=== PATIENT | male | born 1950 | race Caucasian/White ===

== ENCOUNTER 2018-07-06 14:16 | Emergency (ER) | payer MEDICARE, OTHER ==
[2018-07-06 14:53] VITALS: BP 141/87; PULSE 74; RESP 18; TEMP 98.1
--- NOTE | 2018-07-06 15:44 | XR ---
EXAMINATION TYPE: XR knee complete RT DATE OF EXAM: 07/06/2018 CLINICAL HISTORY: Right knee pain for 4 days with no recent known injury. Prior injury 20 years ago. TECHNIQUE: Three views of the right knee are obtained. COMPARISON: None. FINDINGS: There is no acute fracture/dislocation evident in right knee. Heterotopic ossification is seen along the lateral femoral condyle likely from prior trauma as this is well corticated. Medial an d lateral compartment chondrocalcinosis is seen. Superior and inferior patellar osteophytes are prese nt as well as joint space narrowing of the patellofemoral joint.. IMPRESSION: There is no acute fracture or dislocation in the right knee. Sequela prior injury of the lateral distal femur, chondrocalcinosis that can be seen in CPPD or other arthropathies, and patello femoral arthropathy.
--- NOTE | 2018-07-06 16:21 | US ---
EXAMINATION TYPE: US venous doppler duplex LE RT DATE OF EXAM: 07/06/2018 4:07 PM COMPARISON: US CLINICAL HISTORY: Pain. Right knee swelling and pain radiating down calf x 3 days SIDE PERFORMED: Right TECHNIQUE: The lower extremity deep venous system is examined utilizing real time linear array sonog bassem with graded compression, doppler sonography and color-flow sonography. VESSELS IMAGED: Common Femoral Vein Deep Femoral Vein Greater Saphenous Vein * Femoral Vein Popliteal Vein Small Saphenous Vein * Proximal Calf Veins (* superficial vessels) Right Leg: Negative for DVT. Complex fluid area is noted anterior right knee superiorly and size = 4 .8 x 4.1 x 1.1cm. This is avascular. IMPRESSION: 1. No evidence of deep venous thrombosis within the right lower extremity. 2. In the region of the patient's pain anterior to the right knee there is a 4.8 cm complex avascular fluid collection most sonographically compatible with an evolving hematoma. However if there is no c linical improvement short-term follow-up ultrasound would be recommended to evaluate for persistence or interval growth.
--- NOTE | 2018-07-06 16:52 | ED ---
General Adult HPI - General Chief complaint: Extremity Injury, Lower Stated complaint: Rt leg pain Time Seen by Provider: 07/06/18 15:07 Source: patient, RN notes reviewed Mode of arrival: ambulatory Limitations: no limitations - History of Present Illness Initial comments: 68-year-old male presented to the emergency room today with chief complaint of right-sided knee pain and Pain. He doesn't that he seen some swelling. He denies any specific injury or trauma. States it is tender with ambulation. Patient denies any other complaints or symptoms. Patient denies any recent fever , chills, shortness of breath, chest pain, back pain, abdominal pain, nausea or vomiting, numbness or tingling, headaches or visual changes, or any other complaints. - Related Data Home Medications Medication Instructions Recorded Confirmed Aspirin EC [Ecotrin] 81 mg PO DAILY 01/23/15 01/23/15 Allergies Allergy/AdvReac Type Severity Reaction Status Date / Time No Known Allergies Allergy Verified 01/23/15 01:25 Review of Systems ROS Statement: Those systems with pertinent positive or pertinent negative responses have been documented in the HPI. ROS Other: All systems not noted in ROS Statement are negative. Past Medical History Past Medical History: CVA/TIA History of Any Multi-Drug Resistant Organisms: None Reported Past Surgical History: Orthopedic Surgery Additional Past Surgical History / Comment(s): Additional Surgical Hx: Splenectomy Past Psychological History: No Psychological Hx Reported Smoking Status: Former smoker Past Alcohol Use History: Occasional Past Drug Use History: None Reported General Exam - General Exam Comments Initial Comments: General: The patient is awake and alert, in no distress, and does not appear acutely ill. Neck: The neck is supple, there is no tenderness or JVD. Cardiovascular: There is a regular rate and rhythm. No murmur, rub or gallop is appreciated. Respiratory: Lungs are clear to auscultation, respirations are non-labored, breath sounds are equal. No wheezes, stridor, rales, or rhonchi. Musculoskeletal: Patient does have moderate swelling to the right knee and calf. Mild tenderness to the medial and lateral aspect of the right knee. Sensations are intact. Pedal pulses plus. Patient shows full range motion. Strength 5/5. Neurological: A&O x 3. CN II-XII intact, There are no obvious motor or sensory deficits. Coordination appears grossly intact. Speech is normal. Skin: Skin is warm and dry and no rashes or lesions are noted. Psychiatric: Normal mood and affect. Limitations: no limitations Course Vital Signs 07/06/18 14:49 Temperature 98.1 F Pulse Rate 74 Respiratory 18 Rate Blood Pressure 141/87 O2 Sat by Pulse 97 Oximetry Medical Decision Making - Medical Decision Making Ultrasound negative for any evidence of a DVT. Moderate amount of swelling. Patient's x-ray shows arthritic changes no acute fracture dislocation. Results were discussed with the patient. Patient will be discharged to follow-up with orthopedics. Advised return for any other concerns. Disposition Clinical Impression: Knee effusion, right Disposition: HOME SELF-CARE Condition: Good Instructions: Knee Pain (ED) Additional Instructions: Please continue to ice elevate the affected area. Please follow-up with orthopedics over the next 2 days return here to the emergency room for any other concerns. Is patient prescribed a controlled substance at d/c from ED?: No Referrals: Good Reeves MD [Primary Care Provider] - 1-2 days Wade John MD [Medical Doctor] - 1-2 days Time of Disposition: 16:54
== END 2018-07-06 17:08 | disposition home or self-care (01) ==
LOC: EC 14:16
DX: M79.661 Pain in right lower leg (principal); M25.461 Effusion, right knee; Z87.891 Personal history of nicotine dependence; Z79.82 Long term (current) use of aspirin
CPT/HCPCS: 99284

== ENCOUNTER 2024-04-18 00:35 | Emergency (ER) | payer MEDICARE ==
[2024-04-18 00:41] VITALS: TEMP 98.4
--- NOTE | 2024-04-18 00:55 | ED ---
Extremity Problem HPI - General Chief complaint: Extremity Problem,Nontraumatic Stated complaint: Left foot swelling and pain Time Seen by Provider: 04/18/24 00:44 Source: patient, family Mode of arrival: wheelchair Limitations: no limitations - History of Present Illness Initial comments: This patient is a 73-year-old man who presents with complaint of left ankle pain and swelling. The patient first noticed the swelling approximately 2 weeks ago. He states that he did a fair amount of walking tonight and the swelling and pain increased. He denies any injury as the inciting factor. He has no previous history of DVT/PE. He denies any chest symptoms, no palpitations, chest pain, dyspnea, lightheadedness or syncope. Patient has not noted fever or chills. No rash associated. MD Complaint: extremity pain, extremity swelling Onset/Timin -: week(s) Location: left, lower extremity History of Same: No -: Yes arthralgia Radiation: none Quality: aching Consistency: constant Improves with: nothing Worsens with: walking Associated Symptoms: denies other symptoms - Related Data Home Medications Medication Instructions Recorded Confirmed Aspirin EC [Ecotrin] 81 mg PO DAILY 01/23/15 01/23/15 Previous Rx's Medication Instructions Recorded HYDROcodone/APAP 5-325MG [[place] 1 tab PO Q6HR PRN 3 Days #12 tab 04/18/24 5-325] predniSONE 60 mg PO DAILY #30 tab 04/18/24 Allergies Allergy/AdvReac Type Severity Reaction Status Date / Time No Known Allergies Allergy Verified 04/18/24 00:41 Review of Systems ROS Statement: Those systems with pertinent positive or pertinent negative responses have been documented in the HPI. ROS Other: All systems not noted in ROS Statement are negative. Constitutional: Denies: fever, chills Respiratory: Denies: cough, dyspnea Cardiovascular: Denies: chest pain, palpitations, edema, syncope Gastrointestinal: Denies: abdominal pain, vomiting, diarrhea Genitourinary: Denies: dysuria, hematuria Musculoskeletal: Reports: joint swelling, arthralgia. Denies: back pain Skin: Denies: rash Neurological: Denies: headache, weakness, numbness Past Medical History Past Medical History: CVA/TIA History of Any Multi-Drug Resistant Organisms: None Reported Past Surgical History: Orthopedic Surgery Additional Past Surgical History / Comment(s): Additional Surgical Hx: Splenectomy Past Psychological History: No Psychological Hx Reported Past Alcohol Use History: Occasional Past Drug Use History: None Reported General Exam Limitations: no limitations General appearance: alert, in no apparent distress Head exam: Present: atraumatic, normocephalic Eye exam: Present: normal appearance. Absent: scleral icterus, conjunctival inj ection Neck exam: Present: normal inspection Respiratory exam: Present: normal lung sounds bilaterally. Absent: respiratory distress, wheezes, rales, rhonchi, stridor, accessory muscle use Cardiovascular Exam: Present: regular rate, normal rhythm, normal heart sounds. Absent: systolic murmur, diastolic murmur, rubs, gallop GI/Abdominal exam: Present: soft. Absent: distended, tenderness, guarding, rebound, rigid, mass Extremities exam: Present: full ROM, tenderness, normal capillary refill, joint swelling. Absent: calf tenderness Neurological exam: Present: alert. Absent: motor sensory deficit Skin exam: Present: warm, dry, intact, normal color. Absent: rash Course Vital Signs 04/18/24 04/18/24 04/18/24 00:36 01:33 02:20 Temperature 98.4 F Pulse Rate 80 73 67 Respiratory 16 18 18 Rate Blood Pressure 217/100 204/101 205/93 O2 Sat by Pulse 97 96 98 Oximetry Medical Decision Making - Medical Decision Making Was pt. sent in by a medical professional or institution (SHELTON Locke, BUSINESS ADVISOR, urgent care, hospital, or alf...) When possible be specific @ -[No] Did you speak to anyone other than the patient for history (EMS, parent, family, police, friend...)? What history was obtained from this source @ -[No] Did you review nursing and triage notes (agree or disagree)? Why? @ -[I reviewed and agree with nursing and triage notes] Were old charts reviewed (outside hosp., previous admission, EMS record, old EKG, old radiological studies, urgent care reports/EKG's, alf records)? Report findings @ -[No old charts were reviewed] Differential Diagnosis (chest pain, altered mental status, abdominal pain women, abdominal pain men, vaginal bleeding, weakness, fever, dyspnea, syncope, headache, dizziness, GI bleed, back pain, seizure, CVA, palpatations, mental health, musculoskeletal)? @ -[Differential Musculoskeletal Muscular strain, contusion, ligament sprain, fracture, arthritis, septic arthritis, bursitis, cellulitis, muscle spasm, nerve compression, DVT, arterial occlusion, herpes zoster, electrolyte abnormality, tumor.... This is not meant to be in all inclusive list EKG interpreted by me (3pts min.). @ -[As above] X-rays interpreted by me (1pt min.). @ -[None done] CT interpreted by me (1pt min.). @ -[None done] U/S interpreted by me (1pt. min.). @ -[None done] What testing was considered but not performed or refused? (CT, X-rays, U/S, labs)? Why? @ -[None] What meds were considered but not given or refused? Why? @ -[None] Did you discuss the management of the patient with other professionals (professionals i.e. , PA, BUSINESS ADVISOR, lab, RT, psych nurse, social work associate, package sorter, teacher, court officer, casework specialist)? Give summary @ -[No] Was smoking cessation discussed for >3mins.? @ -[No] Was critical care preformed (if so, how long)? @ -[No] Were there social determinants of health that impacted care today? How? (Homelessness, low income, unemployed, alcoholism, drug addiction, transportation, low edu. Level, literacy, decrease access to med. care, senior living, rehab)? @ -[No] Was there de-escalation of care discussed even if they declined (Discuss DNR or withdrawal of care, Hospice)? DNR status @ -[No] What co-morbidities impacted this encounter? (DM, HTN, Smoking, COPD, CAD, Cancer, CVA, ARF, Chemo, Hep., AIDS, mental health diagnosis, sleep apnea, morbid obesity)? @ -[None] Was patient admitted / discharged? Hospital course, mention meds given and route, prescriptions, significant lab abnormalities, going to OR and other pe rtinent info. @ -[Patient is 73-year-old man who is here with ankle pain and swelling. The physical exam suggestive of gout. The patient will have course of medication and follow with his physician to ensure that there is improvement Undiagnosed new problem with uncertain prognosis? @ -[No] Drug Therapy requiring intensive monitoring for toxicity (Heparin, Nitro, Insulin, Cardizem)? @ -[No] Were any procedures done? @ -[No] Diagnosis/symptom? @ -[Acute arthralgia, suspected gout Acute, or Chronic, or Acute on Chronic? @ -[Acute Uncomplicated (without systemic symptoms) or Complicated (systemic symptoms)? @ -Uncomplicated Side effects of treatment? @ -[No] Exacerbation, Progression, or Severe Exacerbation? @ -[No] Poses a threat to life or bodily function? How? (Chest pain, [place], [place], pneumonia, PE, COPD, DKA, ARF, appy, cholecystitis, CVA, Diverticulitis, Homicidal, Suicidal, threat to staff... and all critical care pts) @ -[No] - Lab Data Result diagrams: 04/18/24 01:29 04/18/24 01:29 Lab Results 04/18/24 04/18/24 Range/Units 01:29 01:29 WBC 13.4 H (3.8-10.6) k/uL RBC 4.41 (4.30-5.90) m/uL Hgb 13.8 (13.0-17.5) gm/dL Hct 42.1 (39.0-53.0) % MCV 95.5 (80.0-100.0) fL MCH 31.3 (25.0-35.0) pg MCHC 32.7 (31.0-37.0) g/dL RDW 13.9 (11.5-15.5) % Plt Count 320 (150-450) k/uL MPV 9.6 Neutrophils % 77 % Lymphocytes % 13 % Monocytes % 7 % Eosinophils % 2 % Basophils % 0 % Neutrophils # 10.3 H (1.3-7.7) k/uL Lymphocytes # 1.7 (1.0-4.8) k/uL Monocytes # 1.0 (0-1.0) k/uL Eosinophils # 0.2 (0-0.7) k/uL Basophils # 0.1 (0-0.2) k/uL Hypochromasia Slight Sodium 139 (137-145) mmol/L Potassium 4.6 (3.5-5.1) mmol/L Chloride 110 H (98-107) mmol/L Carbon Dioxide 22 (22-30) mmol/L Anion Gap 7 mmol/L BUN 20 (9-20) mg/dL Creatinine 0.63 L (0.66-1.25) mg/dL Est GFR (CKD-EPI)AfAm >90 (>60 ml/min/1.73 sqM) Est GFR (CKD-EPI)NonAf >90 (>60 ml/min/1.73 sqM) Glucose 106 H (74-99) mg/dL Uric Acid 4.0 (3.5-8.5) mg/dL Calcium 9.7 (8.4-10.2) mg/dL Total Bilirubin 0.7 (0.2-1.3) mg/dL AST 22 (17-59) U/L ALT 11 (4-49) U/L Alkaline Phosphatase 103 (38-126) U/L C-Reactive Protein 2.5 H (<1.0) mg/dL Total Protein 7.6 (6.3-8.2) g/dL Albumin 4.4 (3.5-5.0) g/dL Disposition Clinical Impression: Arthralgia of ankle or foot, left Disposition: HOME SELF-CARE Condition: Good Instructions (If sedation given, give patient instructions): Low Purine Diet (ED), Gout (ED), Arthralgia (ED) Prescriptions: HYDROcodone/APAP 5-325MG [[place] 5-325] 1 tab PO Q6HR PRN 3 Days #12 tab PRN Reason: Pain predniSONE 60 mg PO DAILY #30 tab Is patient prescribed a controlled substance at d/c from ED?: Yes When asked, does pt state using other controlled substances?: No If prescribed controlled substance>3 days was MAPS reviewed?: Prescribed <3 Days If opioid is for acute pain is fill amount 7 days or less?: Yes If Rx opioid, was Start Talking consent form obtained?: Yes Referrals: Good Reeves MD [Primary Care Provider] - 1-2 days
[2024-04-18] MEDS: KETOROLAC 15 MG/ML 1 ML VIAL IVP STA (01:23)
[2024-04-18] MEDS: MORPHINE SULFATE 4 MG/ML SYRINGE IV STA (01:24)
[2024-04-18 01:35] VITALS: RESP 18
[2024-04-18 01:41] LABS: Basophils # (A) 0.1 k/uL (0-0.2); Basophils % (A) 0 %; Eosinophils # (A) 0.2 k/uL (0-0.7); Eosinophils % (A) 2 %; HCT 42.1 % (39.0-53.0); HGB 13.8 gm/dL (13.0-17.5); Hypochromasia Slight; Lymphocytes # (A) 1.7 k/uL (1.0-4.8); Lymphocytes % (A) 13 %; MCH 31.3 pg (25.0-35.0); MCHC 32.7 g/dL (31.0-37.0); MCV 95.5 fL (80.0-100.0); Mean Platelet Volume 9.6; Monocytes % (A) 7 %; Neutrophils # (A) 10.3 k/uL (1.3-7.7); Neutrophils % (A) 77 %; Platelet Count 320 k/uL (150-450); RBC 4.41 m/uL (4.30-5.90); RDW 13.9 % (11.5-15.5); WBC 13.4 k/uL (3.8-10.6)
--- NOTE | 2024-04-18 01:41 | US ---
EXAM: US Duplex Left Lower Extremity Veins CLINICAL HISTORY: ITS.REASON US Reason: pain, possible DVT TECHNIQUE: Real-time duplex ultrasound scan of the left lower extremity veins integrating B-mode two-dimensional vascular structure, Doppler spectral analysis, color flow Doppler imaging and compression. COMPARISON: No relevant prior studies available. FINDINGS: Deep veins: No DVT in the visualized common femoral, femoral, proximal deep femoral or popliteal veins. The veins demonstrate normal color flow, are normally compressible, with normal phasic flow and/or augmentation response. Superficial veins: No thrombus in the visualized great saphenous vein. Soft tissues: No popliteal cyst. IMPRESSION: No DVT.
[2024-04-18 01:50] LABS: ALT 11 U/L (4-49); AST 22 U/L (17-59); African American GFR (CKD) >90 (>60 ml/min/1.73 sqM); Albumin 4.4 g/dL (3.5-5.0); Alkaline Phosphatase 103 U/L (38-126); Anion Gap 7 mmol/L; Blood Urea Nitrogen 20 mg/dL (9-20); C Reactive Protein 2.5 mg/dL (<1.0); Calcium 9.7 mg/dL (8.4-10.2); Carbon Dioxide 22 mmol/L (22-30); Chloride 110 mmol/L (98-107); Glucose 106 mg/dL (74-99); Non-African American GFR(CKD) >90 (>60 ml/min/1.73 sqM); Sodium 139 mmol/L (137-145); Total Bilirubin 0.7 mg/dL (0.2-1.3); Total Protein 7.6 g/dL (6.3-8.2)
[2024-04-18 01:54] LABS: Potassium 4.6 mmol/L (3.5-5.1)
[2024-04-18 02:22] VITALS: BP 205/93; PULSE 67
[2024-04-18] MEDS: predniSONE 20 MG TAB PO STA (02:27)
== END 2024-04-18 02:41 | disposition home or self-care (01) ==
LOC: EC 00:35
DX: M25.572 Pain in left ankle and joints of left foot (principal); Z86.73 Personal history of transient ischemic attack (TIA), and cerebral infarction without residual deficits
CPT/HCPCS: 36415; 80053; 84550; 85025; 86140; 93971; 99284; 96374; 96375; J2270; J1885; J7512

== ENCOUNTER 2024-06-23 22:55 | Emergency (ER) | payer MEDICARE ==
[2024-06-23 23:16] VITALS: BP 153/84; PULSE 86; RESP 16; TEMP 98.2
[2024-06-23] MEDS ORDERED: predniSONE 50 MG TAB PO STA (23:23)
[2024-06-23] MEDS ORDERED: HYDROcodone/APAP 5-325MG 1 EACH TAB PO STA (23:23)
--- NOTE | 2024-06-23 23:25 | ED ---
General Adult HPI - General Chief complaint: Extremity Injury, Lower Stated complaint: Rt Foot Pain Time Seen by Provider: 06/23/24 23:01 Source: patient, RN notes reviewed, old records reviewed Mode of arrival: wheelchair Limitations: no limitations - History of Present Illness Initial comments: 73-year-old male with recent diagnosis of gout presents with right ankle pain. Pain has been present for the past several days. No associated fever. Patient has been trying [id number] medications without relief. He states that several months ago he had a gout attack in the left ankle and was prescribed steroids and pain medication. This did significantly improve his symptoms. Patient denies fever. Denies calf pain or tenderness. Denies dyspnea. - Related Data Home Medications Medication Instructions Recorded Confirmed Aspirin EC [Ecotrin] 81 mg PO DAILY 01/23/15 01/23/15 Previous Rx's Medication Instructions Recorded HYDROcodone/APAP 5-325MG [[place] 1 tab PO Q6HR PRN 3 Days #12 tab 04/18/24 5-325] predniSONE 60 mg PO DAILY #30 tab 04/18/24 HYDROcodone/APAP 5-325MG [[place] 1 tab PO Q6HR PRN #12 tab 06/23/24 5-325] predniSONE 50 mg PO DAILY #5 tab 06/23/24 Allergies Allergy/AdvReac Type Severity Reaction Status Date / Time No Known Allergies Allergy Verified 04/18/24 00:41 Review of Systems ROS Statement: Those systems with pertinent positive or pertinent negative responses have been documented in the HPI. ROS Other: All systems not noted in ROS Statement are negative. Past Medical History Past Medical History: CVA/TIA, Hyperlipidemia, Hypertension Additional Past Medical History / Comment(s): gout History of Any Multi-Drug Resistant Organisms: None Reported Past Surgical History: Orthopedic Surgery Additional Past Surgical History / Comment(s): Additional Surgical Hx: Splenectomy Past Psychological History: No Psychological Hx Reported Past Alcohol Use History: Occasional Past Drug Use History: None Reported General Exam Limitations: no limitations General appearance: alert, in no apparent distress Head exam: Present: atraumatic, normocephalic Eye exam: Present: normal appearance, PERRL ENT exam: Present: normal exam Neck exam: Present: normal inspection. Absent: tenderness, meningismus Respiratory exam: Present: normal lung sounds bilaterally. Absent: respiratory distress, wheezes Cardiovascular Exam: Present: regular rate, normal rhythm GI/Abdominal exam: Present: soft. Absent: tenderness Extremities exam: Present: joint swelling (Mild right ankle swelling with warmth.), other (Distal pulses intact). Absent: calf tenderness Course Vital Signs 06/23/24 23:12 Temperature 98.2 F Pulse Rate 86 Respiratory 16 Rate Blood Pressure 153/84 O2 Sat by Pulse 98 Oximetry Medical Decision Making - Medical Decision Making Was pt. sent in by a medical professional or institution (SHELTON Locke, BOMB LOADER, urgent care, hospital, or [facility]...) When possible be specific @ -No Did you speak to anyone other than the patient for history (EMS, parent, family, police, friend...)? What history was obtained from this source @ -No Did you review nursing and triage notes (agree or disagree)? Why? @ -I reviewed and agree with nursing and triage notes Were old charts reviewed (outside hosp., previous admission, EMS record, old EKG, old radiological studies, urgent care reports/EKG's, [facility] records)? Report findings @ -No old charts were reviewed Differential Musculoskeletal Muscular strain, contusion, ligament sprain, fracture, arthritis, septic arthritis, bursitis, cellulitis, muscle spasm, nerve compression, DVT, arterial occlusion, herpes zoster, electrolyte abnormality, tumor.... This is not meant to be in all inclusive list EKG interpreted by me (3pts min.). @ -As above X-rays interpreted by me (1pt min.). @ -None done CT interpreted by me (1pt min.). @ -None done U/S interpreted by me (1pt. min.). @ -None done What testing was considered but not performed or refused? (CT, X-rays, U/S, labs)? Why? @ -None What meds were considered but not given or refused? Why? @ -None Did you discuss the management of the patient with other professionals (professionals i.e. SHELTON Locke, BOMB LOADER, lab, RT, psych nurse, social worker masters, tv production assistant, teacher, strategic intelligence officer, case repairer)? Give summary @ -No Was smoking cessation discussed for >3mins.? @ -No Was critical care preformed (if so, how long)? @ -No Were there social determinants of health that impacted care today? How? (Homelessness, low income, unemployed, alcoholism, drug addiction, transportation, low edu. Level, literacy, decrease access to med. care, skilled nursing, rehab)? @ -No Was there de-escalation of care discussed even if they declined (Discuss DNR or withdrawal of care, Hospice)? DNR status @ -No What co-morbidities impacted this encounter? (DM, HTN, Smoking, COPD, CAD, Cancer, CVA, ARF, Chemo, Hep., AIDS, mental health diagnosis, sleep apnea, morbid obesity)? @ -[History of gout Was patient admitted / discharged? Hospital course, mention meds given and route, prescriptions, significant lab abnormalities, going to OR and other pertinent info. @73-year-old male presenting with right ankle pain, history and exam consistent with gout. Patient is prescribed the same medications he was prescribed several months ago with a similar attack in the left ankle. He is instructed to follow-up with his primary care to ensure resolution. He will return to the emergency department if his symptoms should worsen. Undiagnosed new problem with uncertain prognosis? @ -No Drug Therapy requiring intensive monitoring for toxicity (Heparin, Nitro, Insulin, Cardizem)? @ -No Were any procedures done? @ -No Diagnosis/symptom? @Ankle pain, likely gout Acute, or Chronic, or Acute on Chronic? @ -[Acute on chronic Uncomplicated (without systemic symptoms) or Complicated (systemic symptoms)? @ -Default Side effects of treatment? @ -No Exacerbation, Progression, or Severe Exacerbation? @ -No Poses a threat to life or bodily function? How? (Chest pain, [place], [place], pneumonia, PE, COPD, DKA, ARF, appy, cholecystitis, CVA, Diverticulitis, Homicidal, Suicidal, threat to staff... and all critical care pts) @ -No Disposition Clinical Impression: Gout attack Disposition: HOME SELF-CARE Condition: Fair Instructions (If sedation given, give patient instructions): Gout (ED) Prescriptions: HYDROcodone/APAP 5-325MG [[place] 5-325] 1 tab PO Q6HR PRN #12 tab PRN Reason: Pain predniSONE 50 mg PO DAILY #5 tab Is patient prescribed a controlled substance at d/c from ED?: No Referrals: Good Reeves MD [Primary Care Provider] - 1-2 days Time of Disposition: 23:25
[2024-06-24] MEDS: predniSONE 20 MG TAB PO STA (00:06)
== END 2024-06-24 00:09 | disposition home or self-care (01) ==
LOC: EC 22:55
DX: M10.9 Gout, unspecified (principal)
CPT/HCPCS: 99283

== ENCOUNTER 2024-09-30 13:40 | Emergency (ER) | payer MEDICARE ==
[2024-09-30 14:08] VITALS: RESP 18
--- NOTE | 2024-09-30 15:13 | ED ---
Extremity Problem HPI - General Source: patient, RN notes reviewed Mode of arrival: wheelchair Limitations: no limitations <America Serna - Last Filed: 09/30/24 15:13> <Bruna Pompa - Last Filed: 10/07/24 19:25> - General Chief complaint: Extremity Problem,Nontraumatic Stated complaint: gout Time Seen by Provider: 09/30/24 15:13 - History of Present Illness Initial comments: Quick [id number] male with history of gout presenting for right knee pain x 3 days. Denies trauma or injury. States this feels similar to previous gout flares. (America Serna) 74-year-old male presents to the emergency department for evaluation of right knee pain. Patient states has been going on for 3 days. He states is worse ambulation. Denies any new injury. He does report a history of gout and states that his is similar to prior attacks. He denies recent fever, chills. He notes that he is able to ambulate but is painful. (Bruna Pompa) - Related Data Home Medications Medication Instructions Recorded Confirmed Aspirin EC [Ecotrin] 81 mg PO DAILY 01/23/15 01/23/15 Previous Rx's Medication Instructions Recorded HYDROcodone/APAP 5-325MG [Novi 1 tab PO Q6HR PRN 3 Days #12 tab 04/18/24 5-325] predniSONE 60 mg PO DAILY #30 tab 04/18/24 HYDROcodone/APAP 5-325MG [Novi 1 tab PO Q6HR PRN #12 tab 06/23/24 5-325] predniSONE 50 mg PO DAILY #5 tab 06/23/24 HYDROcodone/APAP 5-325MG [Novi 5] 1 each PO Q6HR PRN #12 tab 09/30/24 predniSONE 50 mg PO DAILY #5 tab 09/30/24 Allergies Allergy/AdvReac Type Severity Reaction Status Date / Time No Known Allergies Allergy Verified 09/30/24 14:04 Review of Systems ROS Other: All systems not noted in ROS Statement are negative. <America Serna - Last Filed: 09/30/24 15:13> ROS Other: All systems not noted in ROS Statement are negative. <Bruna Pompa - Last Filed: 10/07/24 19:25> ROS Statement: Those systems with pertinent positive or pertinent negative responses have been documented in the HPI. Past Medical History Past Medical History: CVA/TIA, Hyperlipidemia, Hypertension Additional Past Medical History / Comment(s): gout History of Any Multi-Drug Resistant Organisms: None Reported Past Surgical History: Orthopedic Surgery Additional Past Surgical History / Comment(s): Additional Surgical Hx: Splenectomy Past Psychological History: No Psychological Hx Reported Smoking Status: Former smoker Past Alcohol Use History: Occasional Past Drug Use History: None Reported <America Serna - Last Filed: 09/30/24 15:13> General Exam Limitations: no limitations <America Serna - Last Filed: 09/30/24 15:13> Limitations: no limitations General appearance: alert, in no apparent distress Head exam: Present: atraumatic, normocephalic, normal inspection Eye exam: Present: normal appearance, PERRL, EOMI. Absent: scleral icterus, conjunctival injection, periorbital swelling ENT exam: Present: normal exam, mucous membranes moist Neck exam: Present: normal inspection. Absent: tenderness, meningismus, lymphadenopathy Respiratory exam: Present: normal lung sounds bilaterally. Absent: respiratory distress, wheezes, rales, rhonchi, stridor Cardiovascular Exam: Present: regular rate, normal rhythm, normal heart sounds. Absent: systolic murmur, diastolic murmur, rubs, gallop, clicks Extremities exam: Present: full ROM, tenderness, normal capillary refill, other (DP and PT pulses 2+, full range of motion to the right knee, tenderness palpation of the right medial knee) Neurological exam: Present: alert, oriented X3 Psychiatric exam: Present: normal affect, normal mood Skin exam: Present: warm, dry, intact, normal color. Absent: rash <Bruna Pompa - Last Filed: 10/07/24 19:25> - General Exam Comments Initial Comments: Visual Physical Exam Vital signs reviewed General: Well-appearing, nontoxic, no acute distress. Head: Normocephalic, atraumatic Eyes: PERRLA, EOMI ENT: Airway patent Chest: Nonlabored breathing Skin: No visual rash, normal skin tone Neuro: Alert and oriented 3 Musculoskeletal: No gross abnormalities (America Serna) Course Vital Signs 09/30/24 09/30/24 14:04 17:36 Temperature 98.6 F 98.4 F Pulse Rate 86 80 Respiratory 18 18 Rate Blood Pressure 170/96 154/82 O2 Sat by Pulse 98 98 Oximetry Medical Decision Making <America Serna - Last Filed: 09/30/24 15:13> <Bruna Pompa - Last Filed: 10/07/24 19:25> - Medical Decision Making I completed the quick note portion of this chart signed America Serna PA-C (America Serna) Was pt. sent in by a medical professional or institution (, PA, CASING SPLITTER, urgent care, hospital, or alf...) When possible be specific @ -No Did you speak to anyone other than the patient for history (EMS, parent, family, police, friend...)? What history was obtained from this source @ -No Did you review nursing and triage notes (agree or disagree)? Why? @ -I reviewed and agree with nursing and triage notes Were old charts reviewed (outside hosp., previous admission, EMS record, old EKG, old radiological studies, urgent care reports/EKG's, alf records)? Report findings @ -No old charts were reviewed Differential Diagnosis (chest pain, altered mental status, abdominal pain women, abdominal pain men, vaginal bleeding, weakness, fever, dyspnea, syncope, headache, dizziness, GI bleed, back pain, seizure, CVA, palpatations, mental health, musculoskeletal)? @ -Differential Musculoskeletal Muscular strain, contusion, ligament sprain, fracture, arthritis, septic arthritis, bursitis, cellulitis, muscle spasm, nerve compression, DVT, arterial occlusion, herpes zoster, electrolyte abnormality, tumor.... This is not meant to be in all inclusive list EKG interpreted by me (3pts min.). @ -None X-rays interpreted by me (1pt min.). @ -X-ray of the right knee shows evidence of osteoarthritis, small joint effusion CT interpreted by me (1pt min.). @ -None done U/S interpreted by me (1pt. min.). @ -None done What testing was considered but not performed or refused? (CT, X-rays, U/S, labs)? Why? @ -None What meds were considered but not given or refused? Why? @ -None Did you discuss the management of the patient with other professionals (professionals i.e. , PA, CASING SPLITTER, lab, RT, psych nurse, foster care social worker, viscosity tester, teacher, collection officer, comp field case manager)? Give summary @ -No Was smoking cessation discussed for >3mins.? @ -No Was critical care preformed (if so, how long)? @ -No Were there social determinants of health that impacted care today? How? (Homelessness, low income, unemployed, alcoholism, drug addiction, transportation, low edu. Level, literacy, decrease access to med. care, alf, rehab)? @ -No Was there de-escalation of care discussed even if they declined (Discuss DNR or withdrawal of care, Hospice)? DNR status @ -No What co-morbidities impacted this encounter? (DM, HTN, Smoking, COPD, CAD, Cance r, CVA, ARF, Chemo, Hep., AIDS, mental health diagnosis, sleep apnea, morbid obesity)? @ -None Was patient admitted / discharged? Hospital course, mention meds given and route, prescriptions, significant lab abnormalities, going to OR and other pertinent info. @ -Discharge. Patient was in the emergency department for evaluation of right knee pain. Patient reports history of gout and states that this is similar to prior flares. X-ray of the knee obtained revealing arthritis present, small joint effusion. Patient provided medication for pain control in the ED and will be started on steroids for treatment of gout. Advised patient to follow-up with primary care provider. He is understanding of this plan. Patient stable at time of discharge. Case discussed with Dr. Hansen Undiagnosed new problem with uncertain prognosis? @ -No Drug Therapy requiring intensive monitoring for toxicity (Heparin, Nitro, Insulin, Cardizem)? @ -No Were any procedures done? @ -No Diagnosis/symptom? @ -Gout Acute, or Chronic, or Acute on Chronic? @ -acute Uncomplicated (without systemic symptoms) or Complicated (systemic symptoms)? @ -uncomplicated Side effects of treatment? @ -No Exacerbation, Progression, or Severe Exacerbation? @ -No Poses a threat to life or bodily function? How? (Chest pain, [place], [place], pneumonia, PE, COPD, DKA, ARF, appy, cholecystitis, CVA, Diverticulitis, Homicidal, Suicidal, threat to staff... and all critical care pts) @ -No (Bruna Pompa) Disposition <America Serna - Last Filed: 12/31/24 15:13> Is patient prescribed a controlled substance at d/c from ED?: No <Bruna Pompa - Last Filed: 10/07/24 19:25> Clinical Impression: Gouty arthritis Disposition: HOME SELF-CARE Condition: Stable Instructions (If sedation given, give patient instructions): Gout (ED) Additional Instructions: Please follow up with your primary care provider. Return to the emergency department for new or worsening symptoms. Prescriptions: HYDROcodone/APAP 5-325MG [Novi 5] 1 each PO Q6HR PRN #12 tab PRN Reason: Pain predniSONE 50 mg PO DAILY #5 tab Referrals: Good Reeves MD [Primary Care Provider] - 1-2 days
--- NOTE | 2024-09-30 16:06 | XR ---
EXAMINATION TYPE: XR knee complete RT DATE OF EXAM: 09/30/2024 3:54 PM COMPARISON: 07/06/2018 CLINICAL INDICATION: Male, 74 years old with history of right knee pain; PHH, pain TECHNIQUE: XR knee complete RT 3 views submitted. FINDINGS: No evidence of any acute osseous pathology, soft tissue swelling. A small joint effusion is present.. Tricompartmental osteophyte formation involving the femoral condyles, tibial plateau and patella. Mild joint space narrowing. A fabella is present. Chondrocalcinosis of the menisci. IMPRESSION: 1. No acute osseous pathology. 2. Moderate to severe tricompartmental osteoarthritic changes. This is progressed from prior. 3. Small joint effusion. This can be further evaluated with MRI. [facility], , 09/30/2024 4:04 PM
[2024-09-30] MEDS: HYDROcodone/APAP 5-325MG 1 EACH TAB PO STA (17:07)
[2024-09-30] MEDS: predniSONE 50 MG TAB PO STA (17:07)
[2024-09-30 17:40] VITALS: BP 154/82; PULSE 80; TEMP 98.4
== END 2024-09-30 17:36 | disposition home or self-care (01) ==
LOC: EC 13:40
DX: M10.9 Gout, unspecified (principal); M17.11 Unilateral primary osteoarthritis, right knee; M25.461 Effusion, right knee; Z87.891 Personal history of nicotine dependence
CPT/HCPCS: 73562; 99283; J7512